=== PATIENT | female | born 1975 | race Caucasian/White ===

== ENCOUNTER → 2019-05-03 15:51 | Outpatient (CLI) | payer OTHER, SELFPAY ==
[2019-05-05 13:58] LABS: Cancer Antigen 125 544.9 U/mL (0.0-38.1)
== END ==
PROVIDERS: Visit Provider Obstetrics & Gynecology
DX: N83.201 Unspecified ovarian cyst, right side (principal)
CPT/HCPCS: 36415; 86304

== ENCOUNTER 2019-05-26 19:20 | Inpatient (IN) | payer SELFPAY, OTHER ==
[2019-05-26 19:24] VITALS: BP 98/56; PULSE 95; RESP 16; TEMP 36.7; O2SAT 99; BMI 19.8
[2019-05-26] MEDS: Atorvastatin Calcium 40 MG Tablet PO (23:21)
[2019-05-27 06:02] LABS: Hematocrit 29.7 % (37-47); Hemoglobin 9.6 g/dL (12.0-15.0); Mean Corp Hgb Conc 32.3 g/dL (32-36); Mean Corpuscular Hgb 29.7 pg (27.0-32.0); Mean Platelet Vol. 10.7 fl (6.2-12.0); Platelet Count 385 K/mm3 (150-450); RBC Distribution Width CV 14.3 % (11.6-14.6); RBC Distribution Width SD 47.2 fl (35.1-43.9); Red Blood Count 3.23 M/mm3 (4.2-5.4); White Blood Count 6.8 K/mm3 (4.4-11.0)
[2019-05-27] MEDS: Enoxaparin 40 MG/0.4 ML Syringe SC (06:20)
[2019-05-27 06:26] LABS: ALB/GLOB Ratio 0.5 RATIO (0.9-2.4); AST(SGOT) 37 U/L (15-37); Alanine Aminotransfer ALT/SGPT 33 U/L (13-56); Albumin, Serum 2.1 g/dL (3.2-5.0); Alkaline Phosphatase 63 U/L (45-117); Anion Gap 6 (5-15); BUN 7 mg/dL (7-18); BUN/Creat Ratio 13.7 RATIO (10-20); Calcium,Total 8.3 mg/dL (8.5-10.1); Chloride 111 mmol/L (98-107); Creatinine, Serum 0.51 mg/dL (0.55-1.02); EST Glomerular Filtration Rate 139 mL/min (>60); Est Glom Filt Rate - Afr Amer 168 mL/min (>60); Estimated Creatinine Clearance 109.33 ml/min; Globulin 3.9 g/dL (2.2-4.2); Glucose 89 mg/dL (74-106); Potassium 4.1 mmol/L (3.5-5.1); Sodium Level 139 mmol/L (136-145)
[2019-05-27 07:51] VITALS: BP 95/64; PULSE 93; RESP 17; TEMP 36.5; O2SAT 96
[2019-05-27 08:11] VITALS: O2SAT 97
[2019-05-27] MEDS: Multivitamins,Therapeutic Tablet 1 TABLET PO (08:19)
[2019-05-27] MEDS: Ascorbic Acid 500 MG Tablet PO (08:19)
[2019-05-27] MEDS: Aspirin 81 MG TAB.CHEW PO (08:19)
[2019-05-27 11:35] VITALS: BP 95/53; PULSE 90
--- NOTE | 2019-05-27 12:12 | CASEMGMT ---
Social Work Completed PHQ9 assessment with pt. Score: 05/27 Brittni Blandon, social work international manager
--- NOTE | 2019-05-27 12:44 | CASEMGMT ---
Social Work Reviewed and agreed with social work intern architect documentation on this date. Ynes Rangel, SUPERINTENDENT CONSTRUCTION CASTING REPAIRER
--- NOTE | 2019-05-27 14:33 | PCM.HP.STD ---
Problem List (1) Physical debility Status: Acute Comment: due to multiple BL ischemic CVA's (2) History of multiple cerebrovascular accidents (CVAs) Status: Acute Comment: watershed emoloic CVA's due to hemorrhagic and distributive shock (3) Cardiomyopathy Status: Acute Comment: Suspect secondary to Takotsubo's cardiomyopathy (4) Abdominal compartment syndrome Status: Resolved Qualifiers: Compartment syndrome type: non-traumatic Qualified Code(s): M79.A3 - Nontraumatic compartment syndrome of abdomen Comment: due to KRZYSZTOF with LSO (5) Acute blood loss anemia Status: Acute Comment: due to recent surgery and then post-op intrabdominal bleeding requiring a second surgery (6) Peanut allergy Status: Acute Comment: this is new - had the first episode at [facility] when eating a penut butter sandwich which she has been eating all her life (7) Bilateral pleural effusion Status: Acute Comment: due to acute CM and acute systolic CHF (8) Status post abdominal hysterectomy and left salpingo-oophorectomy Status: Acute Comment: 05/13/19 at [facility] (9) Uterine leiomyoma Status: Resolved Comment: had KRZYSZTOF with LSO (10) Hypokalemia Status: Resolved (11) Cardiopulmonary arrest with successful resuscitation Status: Acute Comment: during KRZYSZTOF LSO - etiology unclear (12) Left leg DVT Status: Acute Qualifiers: Affected thrombotic vein of extremity: other lower extremity vein Chronicity: acute Qualified Code(s): I82.492 - Acute embolism and thrombosis of other specified deep vein of left lower extremity Comment: has an IVC filter in place (13) Pulmonary embolus Status: Acute Qualifiers: Pulmonary embolism type: single subsegmental (without acute cor pulmonale) Qualified Code(s): I26.93 - Single subsegmental pulmonary embolism without acute cor pulmonale (14) S/P insertion of IVC (inferior vena caval) filter Status: Acute Comment: 05/17/19 (15) Ileus Status: Resolved History of Present Illness Date of Admission: 05/26/19 Chief Complaint: debility due to multiple BL ischemic CVA's - The patient is a 43 year old F pt of Dr. Newberry who is who was referred to [facility] due to a L ovarian mass, uterine mass and and increased CA 125 of 544. She underwent a KRZYSZTOF with LSO on 05/13/19. While in surgery she had cardiopulmonary arrest, the etiology of which is still not clear. Multiple complications ensued including severe CM (likely Takotsubo's CM), Left soleal DVT, single subsegmental pulmonary embolism, abdominal compartment syndrome likely secondary to the combined effects of fluid and intraabdominal hemorrhage with cardiogenic and distributive shock resulting in BL watershed cerebral emboli (predominantly in the left hemisphere) with R side weakness, BL pleural effusions (no malignant cells), acute respiratory failure with hypoxemia, hypokalemia, an anaphylactic reaction to peanut butter and acute blood loss anemia. The most recent echocardiogram showed a 30 to 35% ejection fraction. She had an IVC filter placed on 05/17/2019 at [facility] due to the risk for hemorrhagic transformation from multiple cerebral embolic CVA's and recurrent intra-abdominal bleeding with anticoagulation. She is admitted to the IPRU at [facility] on 05/26/19 for debility due to SVA's for > 3 hours of therapy daily to restore her level of function/independence at or near her prior level of function. She was independent with ADL's and mobility prior to recent surgery. She has 2 steps to enter her house and a flight of stairs to get to the basement. All paperwork from [facility] was reviewed. She has follow up appts at [facility] on May 30 at 12:[address] Anne Marie Romero, May [address] Albino Giordano from gynecologic oncology and May [address] Ac Metz from Cardiology for heart failure at 2:15. HGB on 05/26 9.5, platelets were 441,000 and the WBC count was within normal limits at 6.8 with an unremarkable differential. Agnesian was borderline low at 1.6. Phosphorus was normal. Potassium was decreased at 3.4. BUN was 10 and the creatinine was 0.61. Calcium is within normal limits. EKG from 05/20/2019 showed normal sinus rhythm with inverted T waves in V3 through V6, lead I, lead II lead III and aVF. Past Medical History Allergies peanut Adverse Reaction (Verified 05/26/19 19:55) Anaphylaxis Home Medications: Ambulatory Orders Medication Instructions Recorded Ascorbic Acid [Vitamin C] 500 mg PO DAILY 05/26/19 Aspirin 81 mg PO DAILY 05/26/19 Metoprolol Succinate [Toprol Xl] 25 mg PO DAILY 05/26/19 Multivitamin [Once Daily] 1 ea PO DAILY 05/26/19 Surgical History: hysterectomy - with LSO on 05/13/19 at [facility] Psychiatric History: No pertinent psych hx SOCIAL WORK LECTURER History: dysfunctional uterine bld, ovarian cysts - left, uterine fibroids, - - Lives: With Family Smoking Status: Never smoker Tobacco Use: Non-smoker Alcohol: None Drugs: None - *Family History Maternal History Items: Cancer Sibling History Items: Cancer - Sister with breast cancer at age 29, no genetic testing done Paternal History Items: Cancer - Father with multiple myeloma Review of Systems Constitutional: Reports: Weakness. Denies: Anorexia, Chills, Fever, Malaise, Weight Change Eyes: Reports: Vision Change - homonymus hemianopsia HEENT: Denies: Difficulty Hearing, Difficulty Swallowing, Eye Pain, Head Aches, Nasal Congestion, Sinus Congestion, Sinus Drainage, Sore Throat Cardiovascular: Reports: Orthopnea - has the HOB elevated and slept on 4 pillows. Denies: Chest Pain, Edema, Light Headedness, Palpitations, Syncope Respiratory: Denies: Cough, Shortness of breath at rest, Sputum production Gastrointestinal: Denies: Abdominal Pain, Constipation, Diarrhea, Nausea, Vomiting Genitourinary: Denies: Dysuria Musculoskeletal: Denies: Joint Pain, Joint Tenderness Skin: Reports: Wounds. Denies: Jaundice, Rash Neurological: Reports: Blurred vision, Focal weakness. Denies: Double vision, Change in Speech, Slurred speech, Confusion, Difficulty swallowing, Headaches, Numbness, Tingling, Tremor, Seizures Psychiatric: Denies: Anxiety, Depression, Homicidal Ideations, Suicidal Ideations Endocrine: Denies: Change in Body Habitus Hematologic/ Lymphatic: Reports: Hx of blood clot - recent after KRZYSZTOF...in the left soleal and then had a single subsegmental PE. Denies: Easy Bruising, Easy Bleeding VTE Information - Inpt Only VTE Present on Admission: Yes - LLE DVT and a PE VTE Mechan Device Prophylaxis: Knee High KARL Hose VTE Pharm Prophylaxis ordered?: Yes Patient Problems: Active and Suspected Problems Physical debility (Acute) due to multiple BL ischemic CVA's History of multiple cerebrovascular accidents (CVAs) (Acute) watershed emoloic CVA's due to hemorrhagic and distributive shock Cardiomyopathy (Acute) Suspect secondary to Takotsubo's cardiomyopathy Acute blood loss anemia (Acute) due to recent surgery and then post-op intrabdominal bleeding requiring a second surgery Peanut allergy (Acute) this is new - had the first episode at [facility] when eating a penut butter sandwich which she has been eating all her life Bilateral pleural effusion (Acute) due to acute CM and acute systolic CHF Status post abdominal hysterectomy and left salpingo-oophorectomy (Acute) 05/13/19 at [facility] Cardiopulmonary arrest with successful resuscitation (Acute) during KRZYSZTOF LSO - etiology unclear Left leg DVT (Acute) has an IVC filter in place Pulmonary embolus (Acute) S/P insertion of IVC (inferior vena caval) filter (Acute) 05/17/19 - Physical Exam Vitals/I&O's: Vital Signs Temp Pulse Resp BP Pulse Ox 97.7 F L 90 17 95/53 L 97 05/27/19 07:51 05/27/19 11:35 05/27/19 07:51 05/27/19 11:35 05/27/19 08:11 Oxygen Delivery Method Room Air Weight: 108 lb 7.479 oz Body Mass Index (BMI) 19.8 Intake and Output for Last 24 Hours 05/25/19 05/26/19 05/27/19 23:59 23:59 23:59 Intake Total 360 / 360 Balance 360 / 360 General: Alert, Oriented x3, Cooperative, No apparent distress, Well developed HEENT: Atraumatic, PERRLA, EOMI, Normocephalic Oral: Moist Mucosa, No Gingival or Mucosal Lesions/ Ulcerations Neck: Supple, No JVD, Negative Carotid Bruits, No Nodes, No Nuchal Rigidity, Trachea Midline Lungs: Normal air movement, No rhonchi, No wheeze, Rales - she has coarse rales in both bases that persisted even after the use of the IS for 5 breaths, - - Not tachypneic, no conversational dyspnea, no accessory muscle use, minimal dry cough Cardiovascular: Regular Rhythm, No murmurs, - - Resting heart rate is in the 90s Abdomen: Bowel Sounds Present, Soft, Non Tender, Non-Distended Extremities: No edema, Capillary Refill Less than 3 Seconds, No Calf Tenderness Skin: No rashes, No breakdown Musculoskeletal: No Tenderness to Palpation of Joints or Extremities, No Muscle Wasting Lymphatic: No Cervical, Supraclavicular, or Inguinal Adenopathy Neurological: Cranial nerves II-XII grossly intact, - - no facial droop, R side weakness Arm>leg Psych/Mental Status: Normal Affect, Appropriate Laboratory Results 05/27/19 05:45: WBC 6.8, RBC 3.23 L, Hgb 9.6 L, Hct 29.7 L, MCV 92.0, MCH 29.7, MCHC 32.3, RDW Std Deviation 47.2 H, RDW Coeff of Aguilar 14.3, Plt Count 385, MPV 10.7 05/27/19 05:45: Sodium 139, Potassium 4.1, Chloride 111 H, Carbon Dioxide 22.0, Anion Gap 6, BUN 7, Creatinine 0.51 L, Estim Creat Clear Calc 109.33, Est GFR (MDRD) Af Amer 168, Est GFR (MDRD) Non-Af 139, BUN/Creatinine Ratio 13.7, Glucose 89, Calcium 8.3 L, Total Bilirubin 0.90, AST 37, ALT 33, Alkaline Phosphatase 63, Total Protein 6.0 L, Albumin 2.1 L, Globulin 3.9, Albumin/Globulin Ratio 0.5 L Current Medications Ascorbic Acid (Vitamin C) 500 mg PO DAILY [facility] Last Admin: 05/27/19 08:19 Dose: 500 mg Documented by: [facility]ir[facility], Baby) [facility] Last Admin: 05/27/19 08:19 Dose: 81 mg Documented by: Atorvastatin Calcium (Lipitor) 40 mg PO QHS [facility] Last Admin: 05/26/19 23:21 Dose: 40 mg Documented by: Bisacodyl (Dulcolax) 10 mg RECTAL .PRN X 1 PRN PRN Reason: Constipation Enoxaparin Sodium (Lovenox) 40 mg SC DAILY@0600 [facility] Last Admin: 05/27/19 06:20 Dose: 40 mg Documented by: Magnesium Hydroxide (Milk Of Magnesia) 30 ml PO .PRN X 1 PRN PRN Reason: Constipation Metoprolol Succinate (Toprol Xl (Beta Vicky)) 25 mg PO DAILY [facility] Last Admin: 05/27/19 11:35 Dose: Not Given Documented by: Multivitamins (Multivitamin) 1 tablet PO DAILY@0800 [facility] Last Admin: 05/27/19 08:19 Dose: 1 tablet Documented by: Senna/Docusate Sodium (Senokot-S, Selina-Colace) 2 tablet PO BID [facility] Last Admin: 05/27/19 08:19 Dose: Not Given Documented by: Assessment/Plan All Active Problems Physical debility (Acute) History of multiple cerebrovascular accidents (CVAs) (Acute) Cardiomyopathy (Acute) Abdominal compartment syndrome (Resolved) Acute blood loss anemia (Acute) Peanut allergy (Acute) Bilateral pleural effusion (Acute) Status post abdominal hysterectomy and left salpingo-oophorectomy (Acute) Uterine leiomyoma (Resolved) Hypokalemia (Resolved) Cardiopulmonary arrest with successful resuscitation (Acute) Left leg DVT (Acute) Pulmonary embolus (Acute) S/P insertion of IVC (inferior vena caval) filter (Acute) Ileus (Resolved) Impressions 1. debility due to recent watershed embolic CVA's to BL cerebral hemispheres L>R with LUE>LLE weakness 2. recent KRZYSZTOF with LSO for ovarian endometrioma and large uterine fibroid 3. new CM with a 35% EF - more likely than not due to Takotsubo's CM 4. hypokalemia - resolved 5. Ileus resolved 6. Acute blood loss anemia - stable 7. abdominal compartment S due to hemoperitoneum requiring a second surgery 8. New Peanut allergy 9. BL pleural effusions 10. LLE DVT 11. PE 12. hx of recent IV filter insertion 13. cotton wool spots involving the eyes - needs to see and patternmaker helper post DC. PLAN PT for gait stability OT for ADL's ST for evaluation Analgesics as needed Bowel protocol Fall precautions Assess for Anxiety/Depression GI prophylaxis with not indicated DVT prophylaxis with Lovenox 40 mg subcu daily and KARL hose bilateral Follow up with cardiology, Dr. Rios and the surgeon following DC from IP Rehab Would like to follow up with a claims counsel at [facility] going forward since it is much closer for them and it is difficult to get to [place] for the Kenny PA and Lat CXR Possible anticoagulation in the future when there is no longer a risk for hemorrhagic transformation or post-op intraabdominal bleeding Needs to follow up with ophthalmology for cotton wool spots noted on eye exam at [facility] Code Visit Inpatient E&M: 20887 Init Hosp L3
--- NOTE | 2019-05-27 17:33 | RAD_ITS ---
STUDY: X-RAY CHEST REASON FOR EXAM: Female, 43 years old. RECENT HYSTERECTOMY, AND STROKE, SHORT OF BREATH TECHNIQUE: Frontal and lateral views COMPARISON: None. FINDINGS: The lungs are expanded. Mild effusions at the lung bases with atelectasis. Possible focal left upper lobe infiltrate. Normal size heart. Normal mediastinum and anselmo. Normal visualized pulmonary arteries. Normal visualized aortic arch and descending thoracic aorta. Normal visualized thoracic spine. Normal visualized ribs, clavicles, and shoulders. There is no demonstrated abnormality of the visualized soft tissue structures of the upper abdomen. RAD/Chest PA and Lateral IMPRESSION: Mild effusions at the lung bases with atelectasis. Possible focal left upper lobe infiltrate. Electronically Signed: Paulino Parnell DO at 18:52 EST Tel [phone], Service support ,
--- NOTE | 2019-05-27 18:59 | REHABEVAL_ITS ---
Admission Information Primary Diagnosis:: debility due to multiple BL ischemic CVA's Status Changes from Prescreening?: No changes Identified Actual Problem List:: DVT, Bleeding, Skin Intergrity, Pain, ALteration in Cmfrt, Alteration in Sleep, Mobility Impaired, BP, Hypotension, Fluid Overload r/t CHF, Alteration-Leisure Activ. Potential Problem List:: DVT, Bleeding, Infection, UTI, Aspiration, Falls, Skin Integrity, Depression Risk of Complications DVT: LMWH, KARL Hose Bleeding: Monitor Lab Values, Nursing to Teach Precautions for anti-coagulation therapy., Wound, if applicable, to be assessed every shift., Stroke patients assessed for lethargy or change in status. Infection: Clinical Staff to Monitor for S/S of infection:, S/S of infection include fever, redness, warmth, etc. Urinary Tract Infection: Monitor for frequency, burning, discomfort, or incontinence., Nursing will obtain urine sample for urinalysis and C&S when ordered. Aspiration: Clinical staff will monitor for coughing, drooling, congestion., Speech will evaluate swallowing and dsyphasia., Nursing will monitor patient swallowing during meals. Falls: Patient will be evaluated for Fall Precautions, Patient will be placed on Fall Precautions as indicated per protocol. Skin Breakdown: Nursing will assess skin daily using assessment tool., Nursing will place on Skin Breakdown Precautions as indicated. Pain: Clinical staff will assess patient's pain level per protocol., Medications will be given, if needed, and the pain level reassessed., Other methods: Massage, distraction, decrease stimulus, etc. used PRN. Plan of Care Patient requires physician specializing in physical medicine and rehab oversight to provide close medical supervision of rehab issues including: Pain Management, Sleep Problems, Bowel and Bladder, Medical and co-morbidity Management, DVT prophylaxis, Rehabilitation Leadership, Coordination of treatment team Patient needs Physical Therapy: For a minimum of 1 hour, At least 5 out of 7 days Patient needs Physical Therapy to improve:: Mobility, Mobility, Mobility, Strengthening, Transfers, Stretching, ROM, Endurance, Stairs, Gait, Balance Patient needs Occupational Therapy: For a minimum of 1 hour, At least 5 out of 7 days Patient needs Occupational Therapy to improve ADL's incl.: Eating, Grooming, Bathing, Dressing, Toileting, Toilet transfers, Community Reintegration, Higher functioning activities, Household tasks, Adaptive Equipment, Splinting, Other activities as determined Patient requires speech therapy: For a minimum of 1 hour, At least 5 out of 7 days Patient requires speech therapy for: Swallowing, Cognition, Language Skills, Compensatory Strategies Patient requires 24/ Rehabilitation Nursing for: Pain Issues, Identifying and preventing risk factors, Monitoring and reporting current medical conditions, Assisting with ambulation, transfer, and all ADL's, Teaching patients about disease process and medications, Family teaching, Providing safe environment, Bowel and Bladder Issues, Skin integrity, Medication Management Patient needs Electronic Equipment Trades Worker/ Case Management for: Discharge Planning, Arranging Home Equipment or Services, Family Interventions Patient needs Dietary and Nutrition Services for: Adequate Nutrition, Nutritional Supplements, Nutritional Education Goals Patient will remain: free from falls, or injury at time of discharge. Patient will perform bed mobility at: MOD I level of assist. Patient will complete transfers from bed to chair at: MOD I level of assist. Patient will ambulate: 100 feet, with MOD I assist, with LRD Patient will complete upper body dressing at: MOD I level of assist. Patient will complete lower body dressing at: MOD I level of assist. Patient will complete toileting at: MOD I level of assist. Patient will perform bathing at: MOD I level of assist. Patient will complete grooming at: MOD I level of assist. Patient will complete home management skills at: MOD I level of assist. Patient will achieve: 12 stairs, at MOD I assist Patient will have pain level of: of 3 or less Patient's skin will: remain intact, free from infection. Patient will receive: adequate nutrition. Discharge Planning Pt Prognosis for Sig. Practical Improv. w/in Reasonable Time: Good Estimated Length of stay (days): 7 Anticipated D/C Destination: Home with Outpt Therapy
[2019-05-27 22:00] VITALS: BP 100/60; PULSE 87; RESP 16; TEMP 36.7; O2SAT 97
[2019-05-27] MEDS: Atorvastatin Calcium 40 MG Tablet PO (22:15)
[2019-05-28] MEDS: Enoxaparin 40 MG/0.4 ML Syringe SC (05:50)
[2019-05-28 07:00] VITALS: BP 98/64; PULSE 90; RESP 16; TEMP 36.6; O2SAT 96
[2019-05-28 08:55] VITALS: PULSE 104
[2019-05-28] MEDS: Aspirin 81 MG TAB.CHEW PO (08:57)
[2019-05-28] MEDS: Multivitamins,Therapeutic Tablet 1 TABLET PO (08:57)
[2019-05-28] MEDS: Ascorbic Acid 500 MG Tablet PO (08:57)
[2019-05-28] MEDS: Carvedilol 3.125 MG TABLET PO ×2 (08:57→21:33)
[2019-05-28 08:58] VITALS: BP 114/67; PULSE 104; RESP 18; O2SAT 100
[2019-05-28 19:29] VITALS: BP 104/70; PULSE 100; RESP 16; TEMP 36.7; O2SAT 99
[2019-05-28] MEDS: Atorvastatin Calcium 40 MG Tablet PO (21:33)
[2019-05-28] MEDS: Senna/Docusate Sodium 1 Tablet 2 TABLET PO (21:33)
[2019-05-29] MEDS: Enoxaparin 40 MG/0.4 ML Syringe SC (06:42)
[2019-05-29] MEDS: Multivitamins,Therapeutic Tablet 1 TABLET PO (08:16)
[2019-05-29] MEDS: Carvedilol 3.125 MG TABLET PO ×2 (08:16→19:45)
[2019-05-29] MEDS: Aspirin 81 MG TAB.CHEW PO (08:16)
[2019-05-29] MEDS: Ascorbic Acid 500 MG Tablet PO (08:16)
[2019-05-29] MEDS: Senna/Docusate Sodium 1 Tablet 2 TABLET PO ×2 (08:17→19:44)
[2019-05-29 08:49] VITALS: BP 96/60; PULSE 89; RESP 16; TEMP 36.6; O2SAT 100
--- NOTE | 2019-05-29 12:52 | PN_ITS ---
Patient Problems: Active and Suspected Problems Physical debility (Acute) due to multiple BL ischemic CVA's History of multiple cerebrovascular accidents (CVAs) (Acute) watershed emoloic CVA's due to hemorrhagic and distributive shock Cardiomyopathy (Acute) Suspect secondary to Takotsubo's cardiomyopathy Acute blood loss anemia (Acute) due to recent surgery and then post-op intrabdominal bleeding requiring a second surgery Peanut allergy (Acute) this is new - had the first episode at [facility] when eating a penut butter sandwich which she has been eating all her life Bilateral pleural effusion (Acute) due to acute CM and acute systolic CHF Status post abdominal hysterectomy and left salpingo-oophorectomy (Acute) 05/13/19 at [facility] Cardiopulmonary arrest with successful resuscitation (Acute) during KRZYSZTOF LSO - etiology unclear Left leg DVT (Acute) has an IVC filter in place Pulmonary embolus (Acute) S/P insertion of IVC (inferior vena caval) filter (Acute) 05/17/19 Reason for Visit: Physical debility Subjective: Patient is a 43-year-old male admitted to the inpatient rehab unit with bila teral ischemic CVAs Objective: GENERAL: cooperative HEENT: Atraumatic; EYES; Anicteric, Normal Conjunctiva NECK; supple, normal thyroid, RESPIRATORY: Diminished to auscultation CARDIOVASCULAR: Regular S1 S2, GI: soft, normoactive bowel sounds, : No Renal angle tenderness; EXTREMITIES: No edema, no clubbing, MUSCULOSKELETAL: no muscle waisting NEURO: Awake; no lateralizing signs. SKIN: No Rash PSYCH; Flat affect Vitals/I&O's: Vital Signs Temp Pulse Resp BP Pulse Ox 97.9 F 89 16 96/60 100 05/29/19 08:49 05/29/19 08:49 05/29/19 08:49 05/29/19 08:49 05/29/19 08:49 Oxygen Delivery Method Room Air Weight: 49.2 kg Body Mass Index (BMI) 19.8 Intake and Output for Last 24 Hours 05/27/19 05/28/19 05/29/19 23:59 23:59 23:59 Intake Total 960 / 960 220 / 220 400 / 400 Output Total 400 / 400 425 / 425 Balance 560 / 560 220 / 220 -25 / -25 Current Medications Ascorbic Acid (Vitamin C) 500 mg PO DAILY [facility] Last Admin: 05/29/19 08:16 Dose: 500 mg Documented by: Aspirin (Aspirin, Baby) 81 mg PO DAILYCM [facility] Last Admin: 05/29/19 08:16 Dose: 81 mg Documented by: Atorvastatin Calcium (Lipitor) 40 mg PO QHS [facility] Last Admin: 05/28/19 21:33 Dose: 40 mg Documented by: Bisacodyl (Dulcolax) 10 mg RECTAL .PRN X 1 PRN PRN Reason: Constipation Carvedilol (Coreg) 3.125 mg PO BID [facility] Last Admin: 05/29/19 08:16 Dose: 3.125 mg Documented by: Enoxaparin Sodium (Lovenox) 40 mg SC DAILY@0600 [facility] Last Admin: 05/29/19 06:42 Dose: 40 mg Documented by: Magnesium Hydroxide (Milk Of Magnesia) 30 ml PO .PRN X 1 PRN PRN Reason: Constipation Multivitamins (Multivitamin) 1 tablet PO DAILY@0800 [facility] Last Admin: 05/29/19 08:16 Dose: 1 tablet Documented by: Senna/Docusate Sodium (Senokot-S, Selina-Colace) 2 tablet PO BID [facility] Last Admin: 05/29/19 08:17 Dose: 2 tablet Documented by: Medical Necessity - Tobacco Use Smoking Status: Never smoker Tobacco Use: Non-smoker Assessment/Plan All Active Problems Physical debility (Acute) History of multiple cerebrovascular accidents (CVAs) (Acute) Cardiomyopathy (Acute) Abdominal compartment syndrome (Resolved) Acute blood loss anemia (Acute) Peanut allergy (Acute) Bilateral pleural effusion (Acute) Status post abdominal hysterectomy and left salpingo-oophorectomy (Acute) Uterine leiomyoma (Resolved) Hypokalemia (Resolved) Cardiopulmonary arrest with successful resuscitation (Acute) Left leg DVT (Acute) Pulmonary embolus (Acute) S/P insertion of IVC (inferior vena caval) filter (Acute) Ileus (Resolved) Patient is a 43-year-old male admitted to the inpatient rehab unit with physical debility due to recent complicated hospitalization 1.. Physical debility ?Due to recent complicated hospitalization following KRZYSZTOF with LSO on 03/12/2020 complicated by cardiopulmonary arrest, Takotsubo cardiomyopathy, left soleal DVT, segmental pulmonary embolism, abdominal compartment syndrome and intra- abdominal hemorrhage as well as bilateral ischemic CVAs. Admitted to the inpatient rehab care unit where patient is currently undergoing therapy 2. Bilateral ischemic CVAs ?Admitted to the inpatient rehab unit undergoing therapy 3. Status post KRZYSZTOF with LSO for ovarian endometrioma as well as large uterine fibroid ?Patient had a complicated postop period as documented above. Monitoring H&H. 4. DVT prophylaxis ?Lovenox Code Visit Inpatient E&M: 42741 Subs Hosp L2
[2019-05-29 19:16] VITALS: BP 96/64; PULSE 80; RESP 18; TEMP 36.5; O2SAT 100
[2019-05-29] MEDS: Atorvastatin Calcium 40 MG Tablet PO (19:45)
--- NOTE | 2019-05-29 19:51 | NURSING ---
Pt requested early 2200 meds to enable early and uninterrupted bedtimes.
[2019-05-29 21:15] VITALS: BMI 19.8
[2019-05-30] MEDS: Enoxaparin 40 MG/0.4 ML Syringe SC (06:46)
[2019-05-30] MEDS: Multivitamins,Therapeutic Tablet 1 TABLET PO (08:00)
[2019-05-30] MEDS: Aspirin 81 MG TAB.CHEW PO (08:00)
[2019-05-30] MEDS: Carvedilol 3.125 MG TABLET PO ×2 (08:00→21:13)
[2019-05-30] MEDS: Ascorbic Acid 500 MG Tablet PO (08:01)
[2019-05-30] MEDS: Senna/Docusate Sodium 1 Tablet 2 TABLET PO ×2 (08:01→21:13)
[2019-05-30 08:05] VITALS: BP 96/64; PULSE 87; RESP 17; TEMP 37; O2SAT 97
[2019-05-30 14:19] VITALS: BMI 19.8
[2019-05-30 19:12] VITALS: BP 101/62; PULSE 90; RESP 18; TEMP 36.4; O2SAT 100
[2019-05-30 21:00] VITALS: PULSE 90; RESP 16; O2SAT 100; BMI 19.8
[2019-05-30] MEDS: Atorvastatin Calcium 40 MG Tablet PO (21:13)
[2019-05-31 06:13] LABS: Hematocrit 33.1 % (37-47); Hemoglobin 10.4 g/dL (12.0-15.0)
[2019-05-31 06:35] LABS: Anion Gap 7 (5-15); BUN 9 mg/dL (7-18); BUN/Creat Ratio 13.7 RATIO (10-20); Calcium,Total 8.9 mg/dL (8.5-10.1); Chloride 105 mmol/L (98-107); Creatinine, Serum 0.66 mg/dL (0.55-1.02); EST Glomerular Filtration Rate 104 mL/min (>60); Est Glom Filt Rate - Afr Amer 125 mL/min (>60); Estimated Creatinine Clearance 84.48 ml/min; Glucose 88 mg/dL (74-106); Magnesium 1.6 mg/dL (1.6-2.6); Potassium 4.2 mmol/L (3.5-5.1); Sodium Level 141 mmol/L (136-145)
[2019-05-31] MEDS: Enoxaparin 40 MG/0.4 ML Syringe SC (06:40)
[2019-05-31 08:11] VITALS: BP 106/68; PULSE 94; RESP 16; TEMP 36.4; O2SAT 100
[2019-05-31] MEDS: Ascorbic Acid 500 MG Tablet PO (08:12)
[2019-05-31] MEDS: Multivitamins,Therapeutic Tablet 1 TABLET PO (08:12)
[2019-05-31] MEDS: Carvedilol 3.125 MG TABLET PO ×2 (08:12→20:50)
[2019-05-31] MEDS: Aspirin 81 MG TAB.CHEW PO (08:12)
[2019-05-31] MEDS: Senna/Docusate Sodium 1 Tablet 2 TABLET PO ×2 (08:12→20:49)
[2019-05-31 10:00] VITALS: O2SAT 100
--- NOTE | 2019-05-31 10:22 | CASEMGMT ---
Social Work IT met with pt and . Pt is on a cardiac diet. Pt is transferring independently and is walking 400 ft with supervision. Pts wrists and hands unstable, pt ordered brace for stability. PT to give pt home exercises. Pt is min assist for dressing and family agreeing to help. Pt is able to to do toileting independently. ST has concerns with pt executive functioning, attention and spacial skills. Pt numbers and time management skills are at 90% accuracy and money management is at 80% accuracy. Agreeable to DC prior to cardiology appointment on 06/01. IDT recommending OP therapy- OT/ST. Brittni Blandon, social work music internship Ynes Rangel, ASSISTANT TRACK COACH DEVELOPER [employer]
--- NOTE | 2019-05-31 11:32 | PCM.PN.BLA ---
Progress Note Brianna was seen on TEAM rounds today. Her Zeeshan was present. Afebile VSS Maintaining appropriate oxygen saturation on RA Oral intake is good Last bowel movement was 05/30/2019. Discussed with nursing - no problems that need addressed Reviewed the PT/OT/ST notes and listened to their presentations on rounds. Doing well with PT and OT. Will need continued OP OT and ST at [place]. No speech or swallowing deficits but, she is having some cognitive dysfunction. Still with visual field cut on the left. Medication list reviewed. She is tolerating the Coreg with no hypotension. Denies VASQUEZ, Lightheadedness, SOB. No orthopnea or PND. All lab was personally reviewed. Hemoglobin today is improved at 10.4. The BMP shows a BUN of 9 with a creatinine of 0.66. Potassium is 4.2 and the magnesium is borderline low at 1.6. Alert and oriented X 3, NAD, appropriate, cooperative, sitting in the recliner at the bedside PERRL, EOMI MM are moist and there are no mucosal lesions The neck is supple and the trachea is midline, there are no cervical nodes Lungs are clear to auscultation without rales, wheezes or rhonchi Heart has a RRR with no gallop and no rub. Abdomen is soft, NT, ND and there are normal bowel sounds heard in all quadrants. There was no guarding with palpation CN's II - XII are grossly intact. She has 5/5 strength in the left lower extremity and 3/5 strength in the left upper extremity. She now has a wrist splint. She is working on coordination with her left hand. She is right-hand dominant. She still has visual field deficit and neglect of what is going on left lateral. ST mentioned that she is also having some cognitive dysfunction, rosanna with executive function No peripheral edema, no calf tenderness Skin is warm and dry, no rashes, no breakdown. Mood is upbeat and cheerful. Impressions 1. 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 Cardiomyopathy with a 35% ejection fraction-more likely than not Takotsubo's cardiomyopathy 3. Bilateral pleural effusions on chest x-ray with Rales at admission-Rales have resolved 4. Hypokalemia-resolved 5. Hypomagnesemia-we will add a magnesium supplement to her drug regimen. 6. Acute blood loss anemia-hemoglobin is improving 7. Left lower extremity DVT -not currently on full dose anticoagulation secondary to recent abdominal compartment syndrome due to hemoperitoneum. She does have a IVC filter in place and is on Lovenox 40 mg subcu daily for DVT prophylaxis 8. Cotton-wool spots involving both eyes-she will follow-up with an clinical care coordinator Plan on discharge on 06/02/2019 for follow-up appointment with Dr. Duran on 06/02/2019. Outpatient speech therapy and Occupational Therapy at discharge STROKE Vital Signs/Narrative: Vital Signs Temp Pulse Resp BP Pulse Ox 05/31/19 10:00 100 05/31/19 08:11 97.5 F L 94 16 106/68 100 Code Visit Inpatient E&M: 85635 Subs Hosp L2
[2019-05-31 14:17] VITALS: BMI 19.8
--- NOTE | 2019-05-31 16:50 | CHAPLAIN ---
Type of Pastoral Visit _x__ Initial Visit ___ Follow-up Visit ___ On-call Visit ___ General Patient Visit ___ Spiritual Assessment ___ Family Conference ___ Bereavement ___ Rapid Response ___ Code Blue ___ Other (describe below) Pastoral Care Referral From _x__ Patient ___ Family ___ Nurse ___ Physician ___ Textile Worker ___ Machine I Cutter ___ Other (describe below) Sacrament/Intervention _x__ Active listening ___ Anointing ___ Methodist ___ Bereavement ___ Communion _x__ Hillary exploration ___ _x__ Life review _x__ Prayer ___ Reconciliation ___ Sacrament of Sick ___ Supportive presence ___ Wedding ___ Other (describe below) Pastoral Comments
[2019-05-31 20:42] VITALS: BP 102/70; PULSE 86; RESP 18; TEMP 36.6; O2SAT 100
[2019-05-31] MEDS: Atorvastatin Calcium 40 MG Tablet PO (20:50)
[2019-05-31 21:05] VITALS: BMI 19.8
[2019-05-31 22:00] VITALS: PULSE 86; RESP 18; O2SAT 100
[2019-06-01] MEDS: Enoxaparin 40 MG/0.4 ML Syringe SC (06:59)
[2019-06-01 08:07] VITALS: BP 104/73; PULSE 94; RESP 16; TEMP 36.7; O2SAT 100
[2019-06-01] MEDS: Ascorbic Acid 500 MG Tablet PO (08:07)
[2019-06-01] MEDS: Multivitamins,Therapeutic Tablet 1 TABLET PO (08:08)
[2019-06-01] MEDS: Carvedilol 3.125 MG TABLET PO ×2 (08:08→21:15)
[2019-06-01] MEDS: Aspirin 81 MG TAB.CHEW PO (08:08)
[2019-06-01] MEDS: Senna/Docusate Sodium 1 Tablet 2 TABLET PO ×2 (08:08→21:15)
--- NOTE | 2019-06-01 12:29 | CASEMGMT ---
Social Work Pt to DC 06/01. Therapy recommending HHC-OT/ST, pt and requesting [facility]. Educated that [facility] not offer [facility]. agreeable to choosing another HHC, gave resources, asked [facility] to call other HHC agencies. chose [facility] from options given, made referral. Set up van transport services through [facility] for pt and for after appointment tomorrow at 16:00, gave van number to to call if appointment runs late. No DME needs. Plan: DC home with family 06/02/2019, [facility]ST, transport van scheduled for 16:00, no DME needs Brittni Blandon, social work internal carver Ynes Rangel, DESCRIPTIVE CATALOG LIBRARIAN TRIAL MANAGEMENT ASSOCIATE
[2019-06-01 13:45] VITALS: BMI 19.8
--- NOTE | 2019-06-01 17:26 | CASEMGMT ---
Social Work Reviewed and agreed with social work manager internship documentation on this date. Ynes Rangel, PROPOSAL DIRECTOR LAMINATED PLASTICS ASSEMBLER AND GLUER
[2019-06-01 18:53] VITALS: BP 94/67; PULSE 98; RESP 16; TEMP 36.3; O2SAT 97
[2019-06-01] MEDS: Atorvastatin Calcium 40 MG Tablet PO (21:15)
[2019-06-01 21:20] VITALS: PULSE 98; O2SAT 97
[2019-06-01 21:32] VITALS: BMI 19.8
[2019-06-02] MEDS: Enoxaparin 40 MG/0.4 ML Syringe SC (06:53)
[2019-06-02 08:26] VITALS: BP 98/62; PULSE 83; RESP 16; TEMP 36.7; O2SAT 98
[2019-06-02] MEDS: Aspirin 81 MG TAB.CHEW PO (08:37)
[2019-06-02] MEDS: Ascorbic Acid 500 MG Tablet PO (08:37)
[2019-06-02] MEDS: Multivitamins,Therapeutic Tablet 1 TABLET PO (08:37)
[2019-06-02] MEDS: Senna/Docusate Sodium 1 Tablet 2 TABLET PO (08:37)
[2019-06-02] MEDS: Carvedilol 3.125 MG TABLET PO (08:37)
--- NOTE | 2019-06-02 09:37 | PCM.DC ---
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 Cardiomyopathy (Acute) Suspect secondary to Takotsubo's cardiomyopathy Acute blood loss anemia (Acute) due to recent surgery and then post-op intrabdominal bleeding requiring a second surgery Peanut allergy (Acute) this is new - had the first episode at [facility] when eating a penut butter sandwich which she has been eating all her life Bilateral pleural effusion (Acute) due to acute CM and acute systolic CHF Status post abdominal hysterectomy and left salpingo-oophorectomy (Acute) 05/13/19 at [facility] Cardiopulmonary arrest with successful resuscitation (Acute) during KRZYSZTOF LSO - etiology unclear Left leg DVT (Acute) has an IVC filter in place Pulmonary embolus (Acute) S/P insertion of IVC (inferior vena caval) filter (Acute) 05/17/19 You will use the following diet at home:: Cardiac - low cholesterol and low salt Your food should be the consistency of: Regular Your liquids should be the consistency of: Regular/Thin Discharge Activity: May Not Drive, May Shower May resume sexual activity in: 10-14 days Weight Bearing Status: Full weight bearing Call your doctor if your incision/area has: Continuous Slow Oozing, Sudden Increased Bleeding, Increased Pain/ Swelling, Increased Redness, Foul Smelling Discharge, Swelling at the incision site Call your doctor if you observe: Fever of 101 or Higher, Inability to urinate, Inability to have a bowel movement, Shortness of breath, Dizziness, Fainting spells, Swelling in the ankles, Chest pain, Increased palpitations (irregular heartbeat), Calf discomfort, Uncontrolled pain Instructions: What Is Dilated Cardiomyopathy?, Cardiomyopathy Additional Instructions: 1. A lot has happened to you in the past month. You are doing amazingly well but, you need to continue with therapy as an outpatient. You still have weakness in the right arm and you are still having problems with higher level cognitive function. You will need to continue with occupational therapy for the arm weakness and speech therapy to work on thinking straight and being able to complete more complex tasks. 2. Your BP is on the low side and I suspect your BP always runs on the low side....that is actually good because your heart does not have to work as hard. As long as you are not lightheaded or fainting the blood pressure is OK. 3. Your heart does not squeeze as well as it used to, probably because of the stress of everything you went through. Sometimes the heart function recovers over the next 6 months to a year. You may fatigue more easily than you used to so just pace yourself. If you get short of breath sit down. 4. It you start to have swelling in your ankles, shortness of breath when lying down, palpitations or increasing shortness of breath with walking call the software configuration manager. 5. Weigh yourself every morning and record the results. If your weight increases by > 3 lbs in 24 hours or > 5 lbs in 1 week call the software configuration manager. 6. It was a pleasure to meet you Brianna. It seems as though you are on the mend and I suspect you will continue to do very well. If you have questions after Discharge you can call the rehab unit and if the nurses can not answer the questions I will get in touch with you. Remember to keep doing you exercises daily to continue to build strength in the right arm. [phone]. 7. I have given you a written prescription for refills on the EPI pen. Always have 1 available.......peanuts are a pretty common additive to foods and you won't always be able to see them. Pending Tests on Discharge: none Allergies/Adverse Reactions: Allergies peanut Adverse Reaction (Verified 05/31/19 09:33) Anaphylaxis Medications to take at Discharge Ascorbic Acid [Vitamin C] 500 mg PO DAILY 05/26/19 Aspirin 81 mg PO DAILY 05/26/19 Multivitamin [Once Daily] 1 ea PO DAILY 05/26/19 Atorvastatin Calcium [Lipitor] 40 mg PO QHS #30 tab 06/02/19 Carvedilol [Coreg (Beta Vicky)] 3.125 mg PO BID #60 tab 06/02/19 Epi Pen (for allergic rxn) 0.3 mg IM ONCE PRN #1 ea 06/02/19 The following prescriptions were given: Carvedilol [Coreg (Beta Vicky)] 3.125 mg PO BID #60 tab Transmission Status: Pending to [facility] Epi Pen (for allergic rxn) 0.3 mg IM ONCE PRN #1 ea PRN Reason: Anaphylaxis Prescription Printed Atorvastatin Calcium [Lipitor] 40 mg PO QHS #30 tab Transmission Status: Pending to [facility] Test Results: Test results from this visit will be discussed in further detail at your follow-up appointment, if applicable. Please Follow Up With: Kendall Diaz Please Follow Up With: Katarzyna Nelson MD Please Follow Up With: Albino Giordano When: SURGEON Please Follow Up With: Janet Barrera Please Follow Up With: Margarette Terrazas Proposed Discharge Date: 06/02/19
--- NOTE | 2019-06-02 10:05 | DS.PCM_ITS ---
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 due to abdmoinal compartment S due to intrabdominal hemorrhage Cardiomyopathy (Acute) Suspect secondary to Takotsubo's cardiomyopathy Acute blood loss anemia (Acute) due to recent surgery and then post-op intrabdominal bleeding requiring a second surgery Peanut allergy (Acute) this is new - had the first episode at [facility] when eating a penut butter sand wich which she has been eating all her life Bilateral pleural effusion (Acute) due to acute CM and acute systolic CHF Status post abdominal hysterectomy and left salpingo-oophorectomy (Acute) 05/13/19 at [facility] Cardiopulmonary arrest with successful resuscitation (Acute) during KRZYSZTOF LSO - etiology unclear Left leg DVT (Acute) has an IVC filter in place Pulmonary embolus (Acute) S/P insertion of IVC (inferior vena caval) filter (Acute) 05/17/19 Date of Admission: 05/26/19 Date of Discharge: 06/02/19 - Primary Discharge Diagnosis Active and Suspected Problems Neurologic deficit due to acute ischemic cerebrovascular accident (CVA) (Acute) Physical debility (Acute) due to multiple BL ischemic CVA's History of multiple cerebrovascular accidents (CVAs) (Acute) 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 due to abdominal compartment S due to intraabdominal hemorrhage Cardiomyopathy (Acute) Suspect secondary to Takotsubo's cardiomyopathy Acute blood loss anemia (Acute) due to recent surgery and then post-op intraabdominal bleeding requiring a second surgery Peanut allergy (Acute) this is new - had the first episode at [facility] when eating a peanut butter sandwich which she has been eating all her life Bilateral pleural effusion (Acute) due to acute CM and acute systolic CHF Status post abdominal hysterectomy and left salpingo-oophorectomy (Acute) 05/13/19 at [facility] Cardiopulmonary arrest with successful resuscitation (Acute) during KRZYSZTOF LSO - etiology unclear Left leg DVT (Acute) has an IVC filter in place Pulmonary embolus (Acute) S/P insertion of IVC (inferior vena caval) filter (Acute) 05/17/19 - Secondary Discharge Diagnosis Fibroids Ovarian cyst Hospital Course and Treatment Imaging Results: Clinical Impression(s) from Imaging Studies Chest X-Ray 05/27/19 17:33 IMPRESSION: Mild effusions at the lung bases with atelectasis. Possible focal left upper lobe infiltrate. Electronically Signed: Paulino Parnell DO at 18:52 EST Tel [phone], Service support , Laboratory Tests 05/31/19 05/31/19 05/27/19 Range/Units 05:10 05:10 05:45 WBC (4.4-11.0) K/mm3 RBC (4.2-5.4) M/mm3 Hgb 10.4 L (12.0-15.0) g/dL Hct 33.1 L (37-47) % MCV (81-99) fL MCH (27.0-32.0) pg MCHC (32-36) g/dL RDW Std Deviation (35.1-43.9) fl RDW Coeff of Aguilar (11.6-14.6) % Plt Count (150-450) K/mm3 MPV (6.2-12.0) fl Sodium 141 139 (136-145) mmol/L Potassium 4.2 4.1 (3.5-5.1) mmol/L Chloride 105 111 H (98-107) mmol/L Carbon Dioxide 29.0 22.0 (21.0-32.0) mmol/L Anion Gap 7 6 (5-15) BUN 9 7 (7-18) mg/dL Creatinine 0.66 0.51 L (0.55-1.02) mg/dL Estim Creat Clear Calc 84.48 109.33 ml/min Est GFR (MDRD) Af Amer 125 168 (>60) mL/min Est GFR (MDRD) Non-Af 104 139 (>60) mL/min BUN/Creatinine Ratio 13.7 13.7 (10-20) RATIO Glucose 88 89 (74-106) mg/dL Calcium 8.9 8.3 L (8.5-10.1) mg/dL Magnesium 1.6 (1.6-2.6) mg/dL Total Bilirubin 0.90 (0.20-1.00) mg/dL AST 37 (15-37) U/L ALT 33 (13-56) U/L Alkaline Phosphatase 63 (45-117) U/L Total Protein 6.0 L (6.4-8.2) g/dL Albumin 2.1 L (3.2-5.0) g/dL Globulin 3.9 (2.2-4.2) g/dL Albumin/Globulin Ratio 0.5 L (0.9-2.4) RATIO 05/27/19 Range/Units 05:45 WBC 6.8 (4.4-11.0) K/mm3 RBC 3.23 L (4.2-5.4) M/mm3 Hgb 9.6 L (12.0-15.0) g/dL Hct 29.7 L (37-47) % MCV 92.0 (81-99) fL MCH 29.7 (27.0-32.0) pg MCHC 32.3 (32-36) g/dL RDW Std Deviation 47.2 H (35.1-43.9) fl RDW Coeff of Aguilar 14.3 (11.6-14.6) % Plt Count 385 (150-450) K/mm3 MPV 10.7 (6.2-12.0) fl Sodium (136-145) mmol/L Potassium (3.5-5.1) mmol/L Chloride (98-107) mmol/L Carbon Dioxide (21.0-32.0) mmol/L Anion Gap (5-15) BUN (7-18) mg/dL Creatinine (0.55-1.02) mg/dL Estim Creat Clear Calc ml/min Est GFR (MDRD) Af Amer (>60) mL/min Est GFR (MDRD) Non-Af (>60) mL/min BUN/Creatinine Ratio (10-20) RATIO Glucose (74-106) mg/dL Calcium (8.5-10.1) mg/dL Magnesium (1.6-2.6) mg/dL Total Bilirubin (0.20-1.00) mg/dL AST (15-37) U/L ALT (13-56) U/L Alkaline Phosphatase (45-117) U/L Total Protein (6.4-8.2) g/dL Albumin (3.2-5.0) g/dL Globulin (2.2-4.2) g/dL Albumin/Globulin Ratio (0.9-2.4) RATIO none Operations: None Procedures: None Summary of Care Provided: The patient is a 43 year old F pt of Dr. Newberry who is who was referred to [facility] due to a L ovarian mass, uterine mass and an increased CA 125 of 544. She underwent a KRZYSZTOF with LSO on 05/13/19. While in surgery she had cardiopulmonary arrest, the etiology of which is still not clear. Multiple complications ensued including severe CM (likely Takotsubo's CM), Left soleal DVT, single subsegmental pulmonary embolism, abdominal compartment syndrome likely secondary to the combined effects of fluid and intraabdominal hemorrhage with cardiogenic and distributive shock resulting in BL watershed cerebral emboli (predominantly in the left hemisphere) with R side weakness, BL pleural effusions (no malignant cells), acute respiratory failure with hypoxemia, hypokalemia, an anaphylactic reaction to peanut butter and acute blood loss anemia. The most recent echocardiogram showed a 30 to 35% ejection fraction. She had an IVC filter placed on 05/17/2019 at [facility] due to the risk for hemorrhagic transformation from multiple cerebral embolic CVA's and recurrent intra-abdominal bleeding with anticoagulation. She is admitted to the IPRU at [facility] on 05/26/19 for debility due to CVA's for > 3 hours of therapy daily to restore her level of function/independence at or near her prior level of function. She was independent with ADL's and mobility prior to the recent surgery. She has 2 steps to enter her house and a flight of stairs to get to the basement. Lab at presentation to the rehab unit showed a normal white blood cell count, hemoglobin of 9.6 with normochromic normocytic indices and normal platelets. CMP was remarkable for a low calcium at 8.3 (normal when corrected for hypoalbuminemia) and albumin was low at 2.1. Repeat H/H prior to discharge was 10.4/33.1. CMP was within normal limits prior to discharge on 05/31/2019 however the magnesium was borderline low at 1.6 and she was started on Mag-Ox 400 mg p.o. daily. A CXR was done 05/27/2019 for bibasilar rales and this showed small bilateral pleural effusions. Blood pressures were on the low side at admission and she was having some mild lightheadedness. Metoprolol XL 25 mg daily was discontinued and she was started on Coreg 3.25 mg BID. We have not had to hold any doses due to low pressure and she has had no lightheadedness since the adjustment. The mean arterial pressures have ranged from 72-83 following the change. Vital signs on the date of discharge are temperature 98.1, heart rate 83, blood pressure 98/62 with an MAP of 74, respiratory rate 16 and she is 98 100% saturated on room air. She has done well with therapy and is ambulating without an AD but, she still has some higher level cognitive difficulties and weakness in the right hand. She will be going to OP rehab post discharge. On the morning of discharge she denied dizziness, palpitations, CP, [place], orthopnea or PND. She has an appt to follow up with Dr. Nelson in the afternoon on 06/02/19 following DC from the rehab unit. She will also follow up with Margarette Larsen NP (PCP) in 1 week and with surgery and neurology. She currently has an IVC filter because she was thought to be too high risk for anticoagulation due to risk of hemorrhagic conversion of multiple CVA's and also because she had intraabdominal bleeding post op and had to be taken back to surgery. She has been on Lovenox 40 mg daily for DVT prophylaxis while in the rehab unit and the blood count is stable. Will defer to neurology to determine when it would be safe to start anticoagulation. She will also need to follow up with the vascular surgeon going forward to remove the IVC filter. All questions were answered on the day of DC and the pt was instructed to call the rehab unit at [phone] should any additional questions arise. Alert and oriented X 3, NAD, appropriate, cooperative, smiling PERRL, EOMI MM are moist and there are no mucosal lesions The neck is supple and the trachea is midline, there are no cervical nodes Lungs are clear to auscultation with excellent air exchange throughout Heart has a RRR with no gallop and no rub and no MM Abdomen is soft, NT, ND and there are normal bowel sounds heard in all quadrants. There was no guarding with palpation. CN's II - XII are grossly intact. She continues to have weakness in the R arm > R leg. Minimal weakness in the right leg which is most noticeable when climbing stairs No peripheral edema, no calf tenderness Skin is warm and dry, no rashes, no breakdown. The incision is well coapted and there is no dehiscence. There is no selina-incisional erythema and no discharge. She does have 1 suture in the right neck and I do not know what this is from......will defer to surgery to remove. Mood is very positive and upbeat. This note was generated with [employer] dictation software. It may contain incorrect words, spelling, and punctuation that were not noted in checking the note before signing. 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 due to abdmoinal compartment S due to intrabdominal hemorrhage Cardiomyopathy (Acute) Suspect secondary to Takotsubo's cardiomyopathy Acute blood loss anemia (Acute) due to recent surgery and then post-op intrabdominal bleeding requiring a second surgery Peanut allergy (Acute) this is new - had the first episode at [facility] when eating a penut butter sandwich which she has been eating all her life Bilateral pleural effusion (Acute) due to acute CM and acute systolic CHF Status post abdominal hysterectomy and left salpingo-oophorectomy (Acute) 05/13/19 at [facility] Cardiopulmonary arrest with successful resuscitation (Acute) during KRZYSZTOF LSO - etiology unclear Left leg DVT (Acute) has an IVC filter in place Pulmonary embolus (Acute) S/P insertion of IVC (inferior vena caval) filter (Acute) 05/17/19 - Physical Exam Vitals/I&O's: Vital Signs Temp Pulse Resp BP Pulse Ox 98.1 F 83 16 98/62 98 06/02/19 08:26 06/02/19 08:26 06/02/19 08:26 06/02/19 08:26 06/02/19 08:26 Oxygen Delivery Method Room Air Weight: 96 lb 12.527 oz Body Mass Index (BMI) 19.8 Intake and Output for Last 24 Hours 05/31/19 06/01/19 06/02/19 23:59 23:59 23:59 Intake Total 1020 / 1020 440 / 440 Output Total 400 / 400 Balance 620 / 620 440 / 440 Current Medications Ascorbic Acid (Vitamin C) 500 mg PO DAILY [facility] Last Admin: 06/02/19 08:37 Dose: 500 mg Documented by: Aspirin (Aspirin, Baby) 81 mg PO DAILYCM [facility] Last Admin: 06/02/19 08:37 Dose: 81 mg Documented by: Atorvastatin Calcium (Lipitor) 40 mg PO QHS [facility] Last Admin: 06/01/19 21:15 Dose: 40 mg Documented by: Bisacodyl (Dulcolax) 10 mg RECTAL .PRN X 1 PRN PRN Reason: Constipation Carvedilol (Coreg) 3.125 mg PO BID [facility] Last Admin: 06/02/19 08:37 Dose: 3.125 mg Documented by: Enoxaparin Sodium (Lovenox) 40 mg SC DAILY@0600 [facility] Last Admin: 06/02/19 06:53 Dose: 40 mg Documented by: Magnesium Hydroxide (Milk Of Magnesia) 30 ml PO .PRN X 1 PRN PRN Reason: Constipation Multivitamins (Multivitamin) 1 tablet PO DAILY@0800 [facility] Last Admin: 06/02/19 08:37 Dose: 1 tablet Documented by: Senna/Docusate Sodium (Senokot-S, Selina-Colace) 2 tablet PO BID [facility] Last Admin: 06/02/19 08:37 Dose: 2 tablet Documented by: Discharge Activity: May Not Drive, May Shower May resume sexual activity in: 10-14 days Weight Bearing Status: Full weight bearing Call your doctor if your incision/area has: Continuous Slow Oozing, Sudden Increased Bleeding, Increased Pain/ Swelling, Increased Redness, Foul Smelling Discharge, Swelling at the incision site Call your doctor if you observe: Fever of 101 or Higher, Inability to urinate, Inability to have a bowel movement, Shortness of breath, Dizziness, Fainting spells, Swelling in the ankles, Chest pain, Increased palpitations (irregular heartbeat), Calf discomfort, Uncontrolled pain Home Medications: Medications to take at Discharge Ascorbic Acid [Vitamin C] 500 mg PO DAILY 05/26/19 Aspirin 81 mg PO DAILY 05/26/19 Multivitamin [Once Daily] 1 ea PO DAILY 05/26/19 Atorvastatin Calcium [Lipitor] 40 mg PO QHS #30 tab 06/02/19 Carvedilol [Coreg (Beta Vicky)] 3.125 mg PO BID #60 tab 06/02/19 Epi Pen (for allergic rxn) 0.3 mg IM ONCE PRN #1 ea 06/02/19 Following Prescrptions Were Given to Patient: Carvedilol [Coreg (Beta Vicky)] 3.125 mg PO BID #60 tab Transmission Status: Pending to [facility] Epi Pen (for allergic rxn) 0.3 mg IM ONCE PRN #1 ea PRN Reason: Anaphylaxis Prescription Printed Atorvastatin Calcium [Lipitor] 40 mg PO QHS #30 tab Transmission Status: Pending to [facility] Please Follow Up With: Kendall Diaz Please Follow Up With: Katarzyna Nelson MD Please Follow Up With: Albino Giordano When: SURGEON Please Follow Up With: Janet Barrera Please Follow Up With: Margarette Terrazas Patient Instructions: What Is Dilated Cardiomyopathy?, Cardiomyopathy Disposition: Home Minutes spent on discharge:: 40 Patient Condition:: Good Medical Necessity - Tobacco Use Smoking Status: Never smoker Tobacco Use: Non-smoker Meaningful Use Info Meaningful Use Diagnoses (Choose all that apply): Ischemic CVA - CVA Therapy Assessed for PT,OT and/or ST?: Yes - Ischemic Stroke Antithrombotic order at d/c?: Yes Dx of Atrial fib/flutter?: No Anticoagulant at discharge?: No Reason anticoagulant not ordered: Treatment not Indicated Statins at discharge?: Yes Primary Dx Acute Ischemic CVA?: Yes IV tPA ordered during stay?: No Reason IV t-PA not ordered: Treatment not Indicated - pt had the stroke at acute hospital prior to admission to the rehab unit Code Visit Inpatient E&M: 80316 Disch Hosp
[2019-06-02 10:27] VITALS: BMI 19.8
[2019-06-02 16:16] VITALS: BP 98/62; PULSE 83; RESP 16; TEMP 36.7; O2SAT 98
[2019-06-02 16:22] VITALS: BMI 19.8
--- NOTE | 2019-06-02 16:23 | NURSING ---
discharged home with . discharged instructions, medications and appointments reviewed with pt and . denies questions or concerns
== END 2019-06-02 16:25 | disposition home health service (06) | DRG 56 ==
PROVIDERS: Admitting Provider Internal Medicine; Visit Provider Internal Medicine
DX: I69.354 Hemiplegia and hemiparesis following cerebral infarction affecting left non-dominant side (principal); I26.93 Single subsegmental thrombotic pulmonary embolism without acute cor pulmonale; D62 Acute posthemorrhagic anemia; M79.A3 Nontraumatic compartment syndrome of abdomen; I51.81 Takotsubo syndrome; I82.462 Acute embolism and thrombosis of left calf muscular vein; Z90.710 Acquired absence of both cervix and uterus; Z86.74 Personal history of sudden cardiac arrest
CPT/HCPCS: 36415; 71046; 80048; 80053; 83735; 85014; 85018; 85027; 92507; 92523; 97110; 97112; 97116; 97162; 97166; 97530; 97535; 99251; G0463

== ENCOUNTER → 2019-06-14 | Outpatient (CLI) | payer OTHER, SELFPAY ==
[2019-06-09 10:03] VITALS: BMI 18.5
[2019-06-14 14:04] LABS: ALB/GLOB Ratio 0.9 RATIO (0.9-2.4); AST(SGOT) 18 U/L (15-37); Alanine Aminotransfer ALT/SGPT 20 U/L (13-56); Albumin, Serum 3.5 g/dL (3.2-5.0); Alkaline Phosphatase 72 U/L (45-117); Anion Gap 5 (5-15); BUN 13 mg/dL (7-18); Calcium,Total 9.3 mg/dL (8.5-10.1); Chloride 105 mmol/L (98-107); Creatinine, Serum 0.65 mg/dL (0.55-1.02); EST Glomerular Filtration Rate 105 mL/min (>60); Est Glom Filt Rate - Afr Amer 127 mL/min (>60); Globulin 3.7 g/dL (2.2-4.2); Glucose 76 mg/dL (74-106); Potassium 4.4 mmol/L (3.5-5.1); Protein, Total 7.2 g/dL (6.4-8.2); Sodium Level 141 mmol/L (136-145)
== END | disposition home or self-care (01) ==
LOC: LABSPEC 13:16
PROVIDERS: Internal Medicine Medical Oncology; PCP Nurse Practitioner Family; Referring Provider Specialist; Visit Provider Specialist
DX: I42.9 Cardiomyopathy, unspecified (principal); I82.402 Acute embolism and thrombosis of unspecified deep veins of left lower extremity
CPT/HCPCS: 80053

== ENCOUNTER → 2019-08-11 08:30 | Outpatient (CLI) | payer OTHER, SELFPAY ==
[2019-06-09 10:03] VITALS: BMI 18.5
[2019-08-11 09:29] LABS: Hematocrit 42.2 % (37-47); Hemoglobin 13.5 g/dL (12.0-15.0); Mean Corpuscular Hgb 28.1 pg (27.0-32.0); Mean Corpuscular Volume 87.7 fL (81-99); Mean Platelet Vol. 11.2 fl (6.2-12.0); Platelet Count 217 K/mm3 (150-450); RBC Distribution Width CV 12.2 % (11.6-14.6); Red Blood Count 4.81 M/mm3 (4.2-5.4); White Blood Count 5.5 K/mm3 (4.4-11.0)
[2019-08-11 09:51] LABS: Anion Gap 5 (5-15); BUN 11 mg/dL (7-18); BUN/Creat Ratio 15.6 RATIO (10-20); Calcium,Total 9.2 mg/dL (8.5-10.1); Chloride 103 mmol/L (98-107); Creatinine, Serum 0.71 mg/dL (0.55-1.02); EST Glomerular Filtration Rate 95 mL/min (>60); Est Glom Filt Rate - Afr Amer 115 mL/min (>60); Glucose 97 mg/dL (74-106); Potassium 4.2 mmol/L (3.5-5.1); Sodium Level 141 mmol/L (136-145)
== END ==
PROVIDERS: PCP Nurse Practitioner Family; Referring Provider Specialist; Visit Provider Specialist
DX: E87.6 Hypokalemia (principal); I42.9 Cardiomyopathy, unspecified; R06.00 Dyspnea, unspecified; D62 Acute posthemorrhagic anemia
CPT/HCPCS: 36415; 80048; 85027

== ENCOUNTER → 2019-08-20 10:34 | Outpatient (CLI) | payer OTHER, SELFPAY ==
[2019-06-02 15:10] VITALS: BMI 18.3
[2019-06-09 10:03] VITALS: BMI 18.5
--- NOTE | 2019-08-20 10:35 | ECHOD_ITS ---
Reason For Study: CMP Procedure This was a 2D Doppler, Color Flow transthoracic echocardiogram. Exam performed in department. Left Ventricle Normal LV size. The estimated ejection fraction is 55 %. No evidence for diastolic dysfunction. Right Ventricle Normal RV size. Normal systolic function. Atria Normal left atrium. Normal right atrium. No doppler evidence for ASD. Mitral Valve There is no mitral valve stenosis. No mitral valve insufficiency. Tricuspid Valve There is no tricuspid stenosis. Trivial tricuspid valve insufficiency. Unable to estimate RV systolic pressure due to insufficient tricuspid regurgitant envelope. Aortic Valve The aortic valve is not well visualized. There is no aortic stenosis. No aortic valve insufficiency. Pulmonic Valve There is no pulmonic valvular stenosis. No pulmonic valve insufficiency. Great Vessels Normal aortic root. Pericardium/Pleural No pericardial effusion. MMode/2D Measurements & Calculations LVIDd: 3.8 cm IVSd: 0.59 cm Ao root diam: 2.7 cm LVIDs: 2.9 cm LVPWd: 0.72 cm RVDd: 2.6 cm FS: 22.5 % LAV(MOD-bp): 27.2 ml LA A4 area: 11.5 cm2 LA dimension(2D): 2.4 cm LAV(MOD-bp) Indexed: 18.7 ml/m2 LAV(MOD-sp2): 28.7 ml LAV(MOD-sp4): 23.1 ml RA A4 area: 9.4 cm2 Time Measurements MV dec time: 0.41 sec Doppler Measurements & Calculations MV E max thang: 45.9 cm/sec Lat Peak E' Thang: 12.6 cm/sec Med Peak E' Thang: 9.4 cm/sec MV A max thang: 53.4 cm/sec E/E' lat: 3.6 E/E' med: 4.9 MV E/A: 0.86 Ao V2 max: 94.8 cm/sec LV V1 max: 75.2 cm/sec TR max thang: 194.0 cm/sec Ao max P.6 mmHg LV V1 max P.3 mmHg TR max P.1 mmHg Interpretation Summary The estimated ejection fraction is 55 %. No evidence for diastolic dysfunction. Ordering Physician: Katarzyna Nelson Referring Physician: RAIZA RIVAS Performed By: Angeline Cervantes, YAMILET, RVT
== END ==
PROVIDERS: PCP Nurse Practitioner Family; Referring Provider Specialist; Visit Provider Specialist
DX: I42.9 Cardiomyopathy, unspecified (principal)
CPT/HCPCS: 93306

== ENCOUNTER → 2022-08-23 | Outpatient (CLI) | payer SELFPAY, OTHER ==
--- NOTE | 2022-08-23 08:10 | ECHOD_ITS ---
Reason For Study: Takotsubo Cardiomyopathy Procedure This was a 2D Doppler, Color Flow transthoracic echocardiogram. Exam performed in department. Left Ventricle Normal LV size. Left ventricular systolic function is normal. The estimated ejection fraction is 60 %. No regional wall motion abnormalities noted. Right Ventricle Normal RV size. Normal systolic function. Atria Normal left atrium. Normal right atrium. Mitral Valve Normal mitral valve. Tricuspid Valve Normal tricuspid valve. Aortic Valve Normal aortic valve. Trisinus/trileaflet aortic valve. Pulmonic Valve Normal pulmonic valve. Great Vessels Normal aortic root. The pulmonary artery is normal size. Normal inferior vena cava. Pericardium/Pleural No pericardial effusion. MMode/2D Measurements & Calculations LVIDd: 4.3 cm IVSd: 0.82 cm Ao root diam: 2.5 cm LVIDs: 3.1 cm LVPWd: 0.73 cm RVDd: 2.8 cm FS: 28.0 % LAV(MOD-bp): 24.6 ml LVAd ap4: 22.5 cm2 SV(MOD-sp4): 35.3 ml LAV(MOD-bp) Indexed: 16.6 ml/m2 LVLd ap4: 7.1 cm LAV(MOD-sp2): 28.3 ml EDV(MOD-sp4): 59.2 ml LAV(MOD-sp4): 19.0 ml EDV(sp4-el): 60.2 ml LVAs ap4: 12.7 cm2 LVLs ap4: 5.6 cm ESV(MOD-sp4): 24.0 ml ESV(sp4-el): 24.4 ml EF(MOD-sp4): 59.5 % EF(sp4-el): 59.5 % SV(sp4-el): 35.8 ml LA A4 area: 10.5 cm2 LA dimension(2D): 2.6 cm RA A4 area: 8.7 cm2 Time Measurements MV dec time: 0.33 sec Doppler Measurements & Calculations MV E max thang: 57.8 cm/sec Lat Peak E' Thang: 16.2 cm/sec Med Peak E' Thang: 10.6 cm/sec MV A max thang: 51.5 cm/sec E/E' lat: 3.6 E/E' med: 5.4 MV E/A: 1.1 Ao V2 max: 103.5 cm/sec LV V1 max: 80.2 cm/sec MV dec slope: 176.6 cm/sec2 Ao max P.3 mmHg LV V1 max P.6 mmHg Ao V2 mean: 79.0 cm/sec Ao mean P.6 mmHg Ao V2 VTI: 22.3 cm PA V2 max: 91.5 cm/sec TR max thang: 215.0 cm/sec TR max P.5 mmHg ECHO/Echo Complete Interpretation Summary Normal LV size. Left ventricular systolic function is normal. The estimated ejection fraction is 60 %. Structurally normal valves. Ordering Physician: Luis Burnett Referring Physician: Margarette Terrazas Performed By: Maribel Burnett, RDDAVE, RVT
== END | disposition home or self-care (01) ==
LOC: CVS 08:10
PROVIDERS: PCP Nurse Practitioner Family; Referring Provider Nurse Practitioner Family; Visit Provider Nurse Practitioner Family
DX: I51.81 Takotsubo syndrome (principal)
CPT/HCPCS: 93306